=== PATIENT | female | born 1995 | race Caucasian/White ===

== ENCOUNTER 2021-03-12 04:42 | Day surgery (SDC) | payer BC ==
[2021-03-11 11:58] VITALS: BMI 29.2
[2021-03-12] MEDS ORDERED: MIDAZOLAM HCL 2 MG/2 ML SINGLE DOSE VIAL ONE (12:43)
[2021-03-12] MEDS ORDERED: LIDOCAINE HCL 2% JELLY (5 ML/TUBE) ONE (12:44)
[2021-03-12] MEDS ORDERED: ALBUTEROL SO4 HFA INHALER IH ONE ×2 (12:44)
[2021-03-12] MEDS ORDERED: ceFAZolin 2 GRAM PREMIX BAG IVPB STA (12:45)
[2021-03-12] MEDS ORDERED: KETAMINE HCL 200 MG/20 ML VIAL ONE (12:47)
[2021-03-12] MEDS ORDERED: ceFAZolin SODIUM 1 GM VIAL IVPB ONE (13:00)
[2021-03-12] MEDS ORDERED: PROPOFOL 20 ML ONE (13:08)
[2021-03-12] MEDS ORDERED: PROMETHAZINE HCL 25 MG/1 ML VIAL IVPUSH PRN (13:50)
[2021-03-12] MEDS ORDERED: LACTATED RINGERS SOLUTION 1,000 ML IV SCH (14:00)
[2021-03-12] MEDS ORDERED: oxyCODONE HCL 5 MG TABLET PO ONE (14:50)
[2021-03-12] MEDS ORDERED: ACETAMINOPHEN 325 MG TABLET (FP) PO PRN (15:37)
[2021-03-12] MEDS ORDERED: IBUPROFEN 400 MG TABLET (FP) PO PRN (15:37)
[2021-03-12] MEDS ORDERED: ONDANSETRON 4 MG/2 ML VIAL IVPUSH ONE (16:16)
[2021-03-12 17:33] VITALS: BP 105/51; PULSE 60; TEMP 98.1
== END 2021-03-12 17:33 | disposition home or self-care (01) ==
LOC: JASU-SURG 04:42
PROVIDERS: ATTEND Obstetrics & Gynecology
PROC: 0HQAXZZ Repair Inguinal Skin, External Approach (ICD-10-PCS; 2021-03-12)
PROC: 0UBMXZZ Excision of Vulva, External Approach (ICD-10-PCS; 2021-03-12)
PROC: 0UBG0ZZ Excision of Vagina, Open Approach (ICD-10-PCS; principal; 2021-03-12 12:00)
DX: N90.7 Vulvar cyst (principal); N89.8 Other specified noninflammatory disorders of vagina
CPT/HCPCS: 88304-TC; 94760